=== PATIENT | female | born 1965 | race Caucasian/White ===

== ENCOUNTER 2023-11-15 12:25 | Outpatient (OUT) | payer BC, SELFPAY ==
[2023-11-16 04:08] LABS: Estradiol 45.8 pg/mL (.); FSH 43.6 mIU/mL (.)
[2023-11-20 00:06] LABS: Free Testosterone(Direct) 0.3 pg/mL (0.0-4.2); Testosterone 11 ng/dL (4-50)
== END 2023-11-15 12:26 | disposition home or self-care (01) ==
LOC: LAB 12:32
DX: N95.1 Menopausal and female climacteric states (principal)
CPT/HCPCS: 36415; 82670; 83001; 84402; 84403